=== PATIENT | male | born 1990 | race Caucasian/White ===

== ENCOUNTER 2021-07-23 22:37 | Emergency (ER) | payer SELFPAY ==
[~2021-07-23] VITALS: Ht 172.7 cm; Wt 77.1 kg
--- NOTE | 2021-07-23 22:50 | NUR ---
PATIENT WALKED INTO ER C/O RASH ON RIGHT ARM AND ABDOMINAL AREA THAT STARTED 4 DAYS AGO. ALSO C/O TOOTHACHE X1 MONTH.
--- NOTE | 2021-07-23 22:52 | NUR ---
Dr. Tapia on bedside for MSE.
[2021-07-23] MEDS ORDERED: IV NORMAL SALINE 1000 ML BAG IV ONE (23:00)
[2021-07-23 23:18] LABS: CREATININE 0.9 mg/dL (0.6-1.3); HEMATOCRIT 36.8 % (36.7-47.1); MEAN CORPUSCULAR HEMOGLOBIN 30.4 uug (23.8-33.4); MEAN CORPUSCULAR VOLUME 89.2 fL (73.0-96.2); PLATELET COUNT (AUTO) 282 K/uL (152-348); POTASSIUM 3.1 mmol/L (3.5-5.1)
--- NOTE | 2021-07-23 23:59 | NUR ---
VS taken. BP 165/104. Dr. Tapia made aware.
--- NOTE | 2021-07-24 00:09 | NUR ---
Dr. Tapia on bedside.
[2021-07-24] MEDS ORDERED: TRIA15OI9 TP (00:24)
[2021-07-24] MEDS ORDERED: NAPR-1192 PO (00:25)
--- NOTE | 2021-07-24 00:35 | NUR ---
Patient discharged to home in stable condition. Written and verbal after care instructions given. Patient verbalizes understanding of instructions. Stressed follow up or return to ER for worsening s/s. Patient ambulated fr the ER with steady gait. All belongings with patient.
[2021-07-24 00:36] VITALS: BP 165/104
== END 2021-07-24 00:36 | disposition home or self-care (01) ==
LOC: ER 22:39
DX: L26 Exfoliative dermatitis (principal); M79.601 Pain in right arm; E78.5 Hyperlipidemia, unspecified; R79.82 Elevated C-reactive protein (CRP); R70.0 Elevated erythrocyte sedimentation rate
CPT/HCPCS: 36415; 85025; 85651; 86140; A4663; J7030